=== PATIENT | female | born 1960 | race Caucasian/White ===

== ENCOUNTER 2017-03-09 10:30 | Emergency (ER) | payer MEDICARE, MEDICAID ==
[2017-03-09] MEDS ORDERED: ALBUTEROL NEB SOL 2.5MG/3ML 1 VIAL SOL NEB ONE (11:10)
[2017-03-09] MEDS ORDERED: ALBUTEROL NEB SOL 2.5MG/3ML 1 VIAL SOL ONE (11:28)
[2017-03-09] MEDS ORDERED: FUROSEMIDE 40 MG TAB ONE (11:33)
[2017-03-09 11:50] LABS: BASOPHILS % (AUTO) 1 % (0-3); EOSINOPHILS % (AUTO) 2 % (0-9); HEMATOCRIT 40 % (35-47); MEAN CORPUSCULAR HGB CONC 33.8 gm/dl (32.0-36.0); MEAN CORPUSCULAR VOLUME 83 fL (81-99); MONOCYTES % (AUTO) 5.6 % (0-12); NEUTROPHILS % (AUTO) 64.2 % (37-80)
[2017-03-09 11:56] LABS: CALCIUM 8.3 mg/dl (8.5-10.1); POTASSIUM 3.7 mMol/L (3.5-5.1)
[2017-03-09 12:38] LABS: APPEARANCE,URINE Clear; BILIRUBIN,URINE NEGATIVE (NEGATIVE); COLOR,URINE Yellow; GLUCOSE, URINE (UA) NEGATIVE (NEGATIVE); KETONES,URINE NEGATIVE (NEGATIVE); LEUKOCYTE ESTERASE ,URINE NEGATIVE (NEGATIVE); NITRATE,URINE NEGATIVE (NEGATIVE); OCCULT BLOOD,URINE NEGATIVE (NEG-TRACE); PH,URINE 5.5; UROBILINOGEN,URINE 0.2 (0.2-1.0 EU)
[2017-03-09 12:46] VITALS: RESP 20; TEMP 97.9
[2017-03-09 12:52] LABS: RBC,URINE NEGATIVE (0-3AV/HPF); WBC,URINE 0-2 (0-5AV/HPF)
[2017-03-09 15:49] VITALS: BP 130/65; PULSE 76; O2SAT 95
[2017-03-10] MEDS ORDERED: FUROSEMIDE 40 MG TAB PO SCH (09:00)
== END 2017-03-09 13:34 | disposition home or self-care (01) | DRG 155 ==
LOC: ED 10:30
DX: H92.02 Otalgia, left ear (principal); Z68.41 Body mass index [BMI] 40.0-44.9, adult; M79.89 Other specified soft tissue disorders; R06.02 Shortness of breath; R63.5 Abnormal weight gain
CPT/HCPCS: 36415; 71020; 80048; 81001; 83880; 85025; 99284; J7603

== ENCOUNTER 2017-04-20 11:36 | Outpatient (CLI) | payer MEDICARE, MEDICAID ==
[2017-03-09 15:49] VITALS: O2SAT 95
== END 2017-04-20 11:37 | disposition home or self-care (01) | DRG 554 ==
LOC: CONVCARE 11:36
PROVIDERS: ATTEND Orthopaedic Surgery
DX: M17.12 Unilateral primary osteoarthritis, left knee (principal)
CPT/HCPCS: 73562

== ENCOUNTER 2018-05-10 12:57 | Outpatient (CLI) | payer MEDICARE, MEDICAID ==
[2017-03-09 15:49] VITALS: O2SAT 95
== END 2018-05-10 12:58 | disposition home or self-care (01) | DRG 554 ==
LOC: CONVCARE 12:57
PROVIDERS: ATTEND Orthopaedic Surgery
DX: M19.90 Unspecified osteoarthritis, unspecified site (principal)
CPT/HCPCS: 73560

== ENCOUNTER 2018-11-16 06:54 | Day surgery (SDC) | payer MEDICARE, MEDICAID ==
[2018-11-16] MEDS ORDERED: LIDOCAINE HCL 1% MPF 30 SOL ONE (07:50)
[2018-11-16] MEDS ORDERED: PROPOFOL 500 MG/50 ML EMU IV ONE ×2 (07:50)
[2018-11-16 08:53] VITALS: TEMP 96.7
[2018-11-16 09:22] VITALS: BP 159/83; PULSE 68; RESP 20; O2SAT 97
== END 2018-11-16 09:44 | disposition home or self-care (01) | DRG 392 ==
LOC: SURG 06:54
PROVIDERS: ATTEND Internal Medicine Gastroenterology
DX: R10.9 Unspecified abdominal pain (principal); K59.00 Constipation, unspecified; K52.831 Collagenous colitis; D12.3 Benign neoplasm of transverse colon; Z86.010 Personal history of colon polyps; R19.7 Diarrhea, unspecified; K64.4 Residual hemorrhoidal skin tags; E11.9 Type 2 diabetes mellitus without complications
CPT/HCPCS: J2001; J2704